=== PATIENT | female | born 1990 | race Caucasian/White ===

== ENCOUNTER 2016-08-15 20:52 | Emergency (ER) | payer OTHER ==
[~2016-08-15] VITALS: Ht 162.6 cm; Wt 90.7 kg
[2016-08-15 21:29] VITALS: BP 122/73
== END 2016-08-15 22:31 | disposition home or self-care (01) ==
LOC: ER 20:52
DX: R05 Cough (principal)
CPT/HCPCS: 99283; A4606; Z7610